=== PATIENT | male | born 1955 | race Caucasian/White ===

== ENCOUNTER 2017-07-08 19:21 | Inpatient (IN) | payer OTHER ==
[~2017-07-08] VITALS: Ht 152.4 cm; Wt 86.6 kg
[2017-07-08 22:15] VITALS: BP 114/76
[2017-07-08] MEDS ORDERED: ZOLPIDEM TARTRATE 5 MG TABLET PO PRN (23:00)
[2017-07-08] MEDS ORDERED: ONDANSETRON HCL/PF 4 MG/2 ML VIAL IVP PRN (23:00)
[2017-07-08] MEDS ORDERED: ACETAMINOPHEN 325 MG TABLET PO PRN (23:00)
[2017-07-08 23:05] VITALS: BP 114/76
--- NOTE | 2017-07-08 23:07 | NUR ---
TELE/RN NOTES: DIRECT ADMIT FROM [place] TAJIK SPEAKING 61 YRS. MALE VIA CAROLINE W/ TWO TECH AND DAUGHTER BRET KATHLEEN [phone] TO ROOM # 117-2. A/O X 4. ABLE TO MOVE ALL EXTREMITIES. ON O2 @ 2LPM VIA N/C SAT 98%. C/O ABDOMINAL PAIN MID. TO LLQ 8/10. ADMISSION QUESTIONS DONE W/ DAUGHTER BRET. ACTIVITIES LEADER GREG VISITED PT. HAS MID CHEST SCAR SINCE PT. HAD OPEN HEART SURGERY FEBRUARY 2017. 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 PT. RECEIVED LASIX , ZOFRAN, FENTANYL, ASA. PER DAUGHTER PT. HAD BM DAYS AGO . PT. VOIDED 350 ML OF YELLOW URINE IN URINAL. CALL LIGHT W/ REACH. BED LOCKED AND IN LOW POSITION. WILL CONTINUE TO MONITOR.
[2017-07-09] VITALS: BP 114/82
[2017-07-09] MEDS ORDERED: MAG HYDROX/AL HYDROX/SIMETH 30 ML UDC PO PRN
[2017-07-09] MEDS ORDERED: ALBUTEROL FS 2.5 MG/3 ML VIAL.NEB NEB PRN
[2017-07-09] MEDS ORDERED: DEXTROSE 50%-WATER 50 ML DISP.SYRIN IV PRN
[2017-07-09 00:08] LABS: BASOPHILS % (AUTO) 0.3 % (0.0-2.0); HEMATOCRIT 36 % (39-51); HEMOGLOBIN 12.2 g/dL (13.5-17.5); LYMPHOCYTES # (AUTO) 1.4 /CMM (0.8-4.8); LYMPHOCYTES % (AUTO) 17.4 % (20.0-44.0); MEAN CORPUSCULAR HEMOGLOBIN 32 PG (26.0-33.0); MEAN CORPUSCULAR HGB CONC 33 g/dl (31.0-36.0); MEAN CORPUSCULAR VOLUME 94 fL (80-96); MONOCYTES # (AUTO) 0.8 /CMM (0.1-1.30); MONOCYTES % (AUTO) 10.7 % (2.0-12.0); NEUTROPHILS # (AUTO) 5.6 /CMM (1.8-8.9); NEUTROPHILS % (AUTO) 71.6 % (43.0-81.0); PLATELET COUNT (AUTO) 133 /CMM (150-450); RDW COEFFICIENT OF VARIATION 15.6 (11.5-15.0); RED BLOOD CELL COUNT(AUTO) 3.87 MIL/uL (4.5-6.0); WHITE BLOOD COUNT (AUTO) 7.9 K/uL (4.3-11.0)
[2017-07-09 00:30] LABS: ALBUMIN 3.1 g/dL (3.4-5.0); BILIRUBIN,TOTAL 1.4 mg/dL (0.2-1.0); CALCIUM, SERUM 8.7 mg/dL (8.5-10.1); CREATININE 1.4 mg/dL (0.6-1.3); MAGNESIUM 1.5 mg/dL (1.8-2.4); PHOSPHORUS 4.7 mg/dL (2.5-4.9); POTASSIUM 4.3 mmol/L (3.5-5.1); TOTAL PROTEIN, SERUM 6.8 g/dL (6.4-8.2)
[2017-07-09 00:33] LABS: TROPONIN I 0.205 ng/mL (0.00-0.056)
[2017-07-09] MEDS: FUROSEMIDE 20 MG/2 ML VIAL IV SCH ×2 (00:40→08:16)
[2017-07-09] MEDS: MORPHINE SULFATE INJ 2 MG/ML DISP.SYRIN IV PRN ×3 (01:35→16:37)
[2017-07-09] MEDS ORDERED: ASPIRIN 81 MG TAB.CHEW PO ONE (02:00)
--- NOTE | 2017-07-09 02:02 | NUR ---
TELE/RN NOTES: PAGED DR. CARDENAS AND MADE AWARE OF TROPONIN 0.205 AND BNP [id number] W/ NO NEW ORDERS.
[2017-07-09] MEDS: Magnesium 1GM/D5W 100ML PREMIX 100 ML IV SCH ×2 (02:18→03:17)
[2017-07-09 04:00] VITALS: BP_SYST 111; BP_SYST 88; BP_DIAS 54; BP_DIAS 78
[2017-07-09] MEDS ORDERED: SITA1TAB2 PO (05:00)
[2017-07-09 06:52] LABS: ALBUMIN 2.9 g/dL (3.4-5.0); BILIRUBIN,TOTAL 1.2 mg/dL (0.2-1.0); CALCIUM, SERUM 8.4 mg/dL (8.5-10.1); CREATININE 1.3 mg/dL (0.6-1.3); MAGNESIUM 2.1 mg/dL (1.8-2.4); PHOSPHORUS 5.1 mg/dL (2.5-4.9); TOTAL PROTEIN, SERUM 6.6 g/dL (6.4-8.2)
[2017-07-09 06:53] LABS: BASOPHILS % (AUTO) 0.1 % (0.0-2.0); EOSINOPHILS % (AUTO) 0.1 % (0.0-6.0); HEMATOCRIT 37 % (39-51); HEMOGLOBIN 12.4 g/dL (13.5-17.5); LYMPHOCYTES # (AUTO) 1.3 /CMM (0.8-4.8); LYMPHOCYTES % (AUTO) 17.9 % (20.0-44.0); MEAN CORPUSCULAR HEMOGLOBIN 32 PG (26.0-33.0); MEAN CORPUSCULAR HGB CONC 34 g/dl (31.0-36.0); MEAN CORPUSCULAR VOLUME 94 fL (80-96); MONOCYTES # (AUTO) 0.6 /CMM (0.1-1.30); MONOCYTES % (AUTO) 8.2 % (2.0-12.0); NEUTROPHILS # (AUTO) 5.2 /CMM (1.8-8.9); NEUTROPHILS % (AUTO) 73.7 % (43.0-81.0); PLATELET COUNT (AUTO) 121 /CMM (150-450); RDW COEFFICIENT OF VARIATION 15.3 (11.5-15.0); RED BLOOD CELL COUNT(AUTO) 3.92 MIL/uL (4.5-6.0); WHITE BLOOD COUNT (AUTO) 7.1 K/uL (4.3-11.0)
[2017-07-09 06:56] LABS: TROPONIN I 0.178 ng/mL (0.00-0.056)
--- NOTE | 2017-07-09 07:13 | NUR ---
RN/TELE NOTES: NO ACUTE DISTRESS NOTED. REPORT GIVEN TO AM NURSE FOR CHRISTIANO.
--- NOTE | 2017-07-09 07:25 | NUR ---
RN OPENING NOTES RECEIVED PT. PT STABLE AND RESTING IN BED. PT BREATHING IS LABORED WITH RR OF 20, HOWEVER O2 SAT WNL. NC IN PLACE WITH O2 AT 2L/MIN.IV ACCESS LOCATED ON RIGHT WRIST 20G AND RIGHT HAND 20 G BOTH HL. PT SCHEDULED FOR US ABDOMEN TODAY TO R/O ASCITES, SAFETY MEASURES IN PLACE, CALL LIGHT WITHIN REACH. WILL CONTINUE TO MONITOR.
[2017-07-09] MEDS: PANTOPRAZOLE 40 MG TABLET.DR PO SCH (07:30)
[2017-07-09 08:00] VITALS: BP_SYST 105; BP_SYST 111; BP_DIAS 60; BP_DIAS 73
[2017-07-09] MEDS: BLOOD SUGAR DIAGNOSTIC 1 EACH STRIP IN SCH ×4 (08:15→21:05)
[2017-07-09 08:43] LABS: THYROID STIMULATING HORMONE 1.671 uIU/mL (0.358-3.74)
[2017-07-09] MEDS ORDERED: glipiZIDE 10 MG TABLET PO SCH (09:00)
[2017-07-09] MEDS: glipiZIDE 10 MG TABLET PO SCH ×2 (09:00→16:38)
[2017-07-09] MEDS: CLOPIDOGREL BISULFATE 75 MG TABLET PO SCH (09:00)
[2017-07-09] MEDS ORDERED: CARVEDILOL 6.25 MG TABLET PO SCH (09:00)
[2017-07-09] MEDS: ASPIRIN EC 81 MG TABLET.DR PO SCH (09:00)
[2017-07-09] MEDS ORDERED: ASPIRIN 81 MG TAB.CHEW PO SCH (09:00)
[2017-07-09] MEDS ORDERED: LISINOPRIL (5MG) 5 MG TABLET PO SCH (09:00)
[2017-07-09] MEDS: FUROSEMIDE 40 MG/4 ML VIAL IV SCH ×2 (11:33→15:50)
[2017-07-09 12:00] VITALS: BP_SYST 103; BP_SYST 105; BP_DIAS 63; BP_DIAS 73
--- NOTE | 2017-07-09 13:00 | NUR ---
RN NOTES SLIDING SCALE FOR AM AND NOON HELD DUE TO PT NPO DIAGNOSIS.
--- NOTE | 2017-07-09 15:34 | NUR ---
patient speaks English only, he is alert, lives at home with family. He had recent open heart surgery last Feb 2017. He is ambulatory and independent with adl's. No DME or homehealth reported Has good family support. Current plan is to return home , family will provide ride when discharge. Addendum: 07/09/17 at 1535 by SHIRLEY RON RN Amended: Links added.
[2017-07-09 16:00] VITALS: BP 108/70
--- NOTE | 2017-07-09 19:22 | NUR ---
RN CLOSING NOTES PT IN BED RESTING. NO S/S OF RESP DISTRESS. PT HAD C/O ABD PAIN, ADDRESSED PHARMACOLOGICALLY. ALL PT NEEDS ANTICIPATED AND MET. SAFETY MEASURES IN PLACE, CALL LIGHT IN REACH. WILL ENDORSE TO SPORTS LAWYER FOR CHRISTIANO.
--- NOTE | 2017-07-09 19:30 | NUR ---
TELE /RN NOTES: RECEIVED PT. IN BED SLEEPING BUT EASILY AWAKE BY TACTILE TOUCH. A/O X 4. MOSTLY COOK ISLANDER SPEAKING BUT DOES UNDERSTAND AND ABLE TO SPEAK SIMPLE SYRI[place]. ON TELE MONITOR V PACING. DENIES ANY C/O CHEST PAIN OR ANY ABDOMINAL PAIN AT PRESENT. PT. IS NPO STATUS. PT. IS CONTINENT OF B/B. USES URINAL. CALL LIGHT W/REACH. WILL CONTINUE TO MONITOR.
[2017-07-09 20:00] VITALS: BP_SYST 116; BP_SYST 89; BP_DIAS 49; BP_DIAS 68
[2017-07-09] MEDS: INSULIN REGULAR, HUMAN 100 UNIT/ML 3 ML VIAL SQ PRN (21:08)
[2017-07-09 21:25] LABS: APPEARANCE,URINE CLEAR (CLEAR); BILIRUBIN,URINE NEGATIVE (NEGATIVE); BLOOD, URINE 3+ Ery/uL (NEGATIVE); COLOR,URINE YELLOW (YELLOW); KETONES,URINE NEGATIVE (NEGATIVE); LEUKOCYTE ESTERASE ,URINE NEGATIVE (NEGATIVE); NITRITE, URINE NEGATIVE (NEGATIVE); PROTEIN,URINE TRACE mg/dl (NEGATIVE); UGLUCOSE NEGATIVE (NEGATIVE); UROBILINOGEN,URINE 0.2 EU/dL (0.2)
[2017-07-09 21:28] LABS: WBC,URINE 0-2 /HPF (0-3)
[2017-07-09 21:29] LABS: BACTERIA,URINE Rare /HPF (None Seen); SQUAMOUS EPITHELIAL CELL,UR Few /HPF (None Seen)
[2017-07-09] MEDS ORDERED: ATORVASTATIN 40 MG TABLET PO SCH (22:00)
[2017-07-10] VITALS: BP_SYST 104; BP_SYST 4; BP_DIAS 69
[2017-07-10] MEDS: MORPHINE SULFATE INJ 2 MG/ML DISP.SYRIN IV PRN (00:25)
[2017-07-10 04:00] VITALS: BP 108/73
[2017-07-10 04:47] VITALS: BP 108/73
[2017-07-10 06:45] LABS: BASOPHILS % (AUTO) 0.2 % (0.0-2.0); HEMATOCRIT 38 % (39-51); HEMOGLOBIN 12.7 g/dL (13.5-17.5); LYMPHOCYTES % (AUTO) 14.5 % (20.0-44.0); MEAN CORPUSCULAR HEMOGLOBIN 32 PG (26.0-33.0); MEAN CORPUSCULAR HGB CONC 34 g/dl (31.0-36.0); MEAN CORPUSCULAR VOLUME 95 fL (80-96); MONOCYTES # (AUTO) 0.4 /CMM (0.1-1.30); NEUTROPHILS # (AUTO) 5.7 /CMM (1.8-8.9); NEUTROPHILS % (AUTO) 80.3 % (43.0-81.0); PLATELET COUNT (AUTO) 126 /CMM (150-450); RDW COEFFICIENT OF VARIATION 15.4 (11.5-15.0); RED BLOOD CELL COUNT(AUTO) 3.97 MIL/uL (4.5-6.0); WHITE BLOOD COUNT (AUTO) 7.1 K/uL (4.3-11.0)
[2017-07-10 07:02] LABS: BILIRUBIN,TOTAL 1.3 mg/dL (0.2-1.0); CREATININE 1.4 mg/dL (0.6-1.3); MAGNESIUM 1.8 mg/dL (1.8-2.4); PHOSPHORUS 4.5 mg/dL (2.5-4.9); POTASSIUM 3.8 mmol/L (3.5-5.1); TOTAL PROTEIN, SERUM 6.8 g/dL (6.4-8.2)
[2017-07-10 07:08] LABS: TROPONIN I 0.204 ng/mL (0.00-0.056)
[2017-07-10] MEDS: PANTOPRAZOLE 40 MG TABLET.DR PO SCH (07:30)
--- NOTE | 2017-07-10 07:30 | NUR ---
EMERGENCY MEDCL EMT OPENING NOTE: PATIENT IN BED W/ EYES CLOSE BUT OPEN EYES WHEN CALLING HIS NAME. RESPIRATION EVEN AND UNLABORED. ON O2 2L/MIN VIA NC, SATURATING 98%. HOB ELEVATED. (L) CHEST PACEMAKER NOTED V-PACING ON TELE MONITOR HR= 86. (R) WRIST AND (R) HAND IV LINE NOTED PATENT AND INTACT. AFEBRILE. CALL LIGHT IN PLACED WITHIN REACH. BED ALARM AND LOCKED AT ALL TIMES. NEEDS ANTICIPATED.
--- NOTE | 2017-07-10 07:36 | NUR ---
TELE NOTES: NO ACUTE CHANGES NOTED DURING THIS SHIFT. REPORT GIVEN TO NEXT SHIFT NURSE FOR CHRISTIANO.
--- NOTE | 2017-07-10 07:45 | NUR ---
CLAIM PROFESSIONAL NOTE: RECEIVED PT IN BED, AWAKE, ALERT AND VERBALLY RESPONSIVE. RESPIRATION EVEN AND UNLABORED. (R) WRIST AND (R) HAND SALINE LOCK NOTED PATENT AND INTACT. BED ALARM AND LOCKED ON AT ALL TIMES. USED URINAL. CALL LIGHT WITHIN REACH. NEEDS ANTICIPATED.
[2017-07-10] MEDS: BLOOD SUGAR DIAGNOSTIC 1 EACH STRIP IN SCH ×4 (07:53→21:08)
[2017-07-10 08:00] VITALS: BP 104/69
[2017-07-10] MEDS ORDERED: HYDROMORPHONE INJ 0.5 MG/0.5 ML SYRINGE IV PRN (08:00)
[2017-07-10] MEDS: ASPIRIN EC 81 MG TABLET.DR PO SCH (09:00)
[2017-07-10] MEDS: glipiZIDE 10 MG TABLET PO SCH ×2 (09:00→17:17)
[2017-07-10] MEDS: CLOPIDOGREL BISULFATE 75 MG TABLET PO SCH (09:00)
[2017-07-10] MEDS: FUROSEMIDE 20 MG/2 ML VIAL IV SCH (09:13)
[2017-07-10] MEDS ORDERED: POTASSIUM CHLORIDE 20 MEQ TAB.PRT.SR PO SCH (11:00)
[2017-07-10] MEDS: FUROSEMIDE 40 MG/4 ML VIAL IV SCH ×3 (11:21→17:44)
[2017-07-10] MEDS ORDERED: SOD FERRIC GLUC 125 MG in IV NS 0.9% 100 ML IV SCH (14:00)
[2017-07-10 16:00] VITALS: BP 110/80
--- NOTE | 2017-07-10 16:10 | NUR ---
RN M/S NOTE: PT'S NOTED W/ A TEMP OF 100.4F. COOLING MEASURES PROVIDED AND REMOVED EXCESS LINEN IN THE BED. CALLED AND PAGED MEMO VASQUEZ AND AWAITING FOR CALL BACK.
[2017-07-10] MEDS ORDERED: ACETAMINOPHEN 325 MG TABLET PO ONE (17:00)
--- NOTE | 2017-07-10 17:00 | NUR ---
RN M/S NOTE: RECHECKED PT'S TEMP, AND IT WAS 100.1F. PAGED MEMO VASQUEZ AGAIN TO GET ORDERS. PATIENT VERBALIZED THAT HE FELT SO MUCH BETTER COMPARE EARLIER. NO N/V NOTED. DAUGHTER PRESENT AT THE BEDSIDE.
[2017-07-10] MEDS: HYDROMORPHONE INJ 0.5 MG/0.5 ML SYRINGE IV PRN (17:07)
--- NOTE | 2017-07-10 17:40 | NUR ---
RN M/S NOTE: PT'S TEMPERATURE WAS RECHECKED AGAIN AFTER COOLING MEASURES AND REMOVAL OF EXCESS LINEN ON THE PATIENT. TEMPERATURE NOW IS 98.6F.
--- NOTE | 2017-07-10 19:00 | NUR ---
MS RN NOTE: PATIENT RESTING IN BED, A/O X4, IN STABLE, NO ACUTE DISTRESS NOTED. BREATHING EVEN AND UNLABORED, NO SOB NOTED. BED LOCKED AND IN LOWEST POSITION, CALL LIGHT IN REACH. WILL CONTINUE TO MONITOR.
--- NOTE | 2017-07-10 19:46 | NUR ---
RN M/S NOTE: PATIENT IN STABLE CONDITION. REMAINED ALERT AND VERBALLY RESPONSIVE. REPORT GIVEN TO JOSE J KRAMER FOR CONTINUITY OF CARE.
[2017-07-10 20:00] VITALS: BP 104/75
[2017-07-10] MEDS: INSULIN REGULAR, HUMAN 100 UNIT/ML 3 ML VIAL SQ PRN (21:08)
--- NOTE | 2017-07-11 01:24 | NUR ---
MS RN NOTES PAGED DR. THERESA ROBLES, SPOKE TO HIM PT C/O OF HAVING HEADACHE MILD PAIN 2-10 RELAYED TO . COAL SAMPLER HOSPITALIST PER DR. CARDENAS ORDERED TO GIVE TYLENOL 650 MG PO Q6 PRN NOTED AND CARRIED OUT. READ BACK AND VERIFIED
[2017-07-11] MEDS ORDERED: ACETAMINOPHEN 325 MG TABLET PO PRN (01:30)
[2017-07-11 04:00] VITALS: BP 97/70
--- NOTE | 2017-07-11 06:24 | NUR ---
MS RN CLOSING NOTES ON 2LPM VIA NC 02 SAT AT 95% PT ASLEEP AND EASILY AWAKEN, HOB ELEVATED AT ALL TIMES. NO S/S OF DISTRESS, STABLE CONDITION. RESPIRATION EVEN AND UNLABORED. GOOD SKIN CARE PROVIDED. ALL NURSING CARE RENDERED. NEEDS ATTENDED AND ANTICIPATED, KEPT CLEAN AND DRY AND COMFORTABLE, FREQUENT VISUAL CHECK DONE FOR SAFETY EVERY 2 HOURS. ON LOW BED AT ALL TIMES TO ENSURE SAFETY. SAFE HAZARD FREE ENVIRONMENT PROVIDED. CALL LIGHT WITHIN EASY TO REACH. WILL ENDORSE NEXT SHIFT CONTINUITY OF CARE. NO S/S OF HYPO/HYPERGLYCEMIA
[2017-07-11 07:20] LABS: BASOPHILS % (AUTO) 0.2 % (0.0-2.0); HEMATOCRIT 41 % (39-51); HEMOGLOBIN 13.5 g/dL (13.5-17.5); LYMPHOCYTES # (AUTO) 1.2 /CMM (0.8-4.8); LYMPHOCYTES % (AUTO) 19.7 % (20.0-44.0); MEAN CORPUSCULAR HEMOGLOBIN 32 PG (26.0-33.0); MEAN CORPUSCULAR HGB CONC 33 g/dl (31.0-36.0); MEAN CORPUSCULAR VOLUME 95 fL (80-96); MONOCYTES # (AUTO) 0.4 /CMM (0.1-1.30); NEUTROPHILS # (AUTO) 4.4 /CMM (1.8-8.9); NEUTROPHILS % (AUTO) 74.1 % (43.0-81.0); PLATELET COUNT (AUTO) 132 /CMM (150-450); RDW COEFFICIENT OF VARIATION 15.2 (11.5-15.0); RED BLOOD CELL COUNT(AUTO) 4.25 MIL/uL (4.5-6.0); WHITE BLOOD COUNT (AUTO) 5.9 K/uL (4.3-11.0)
--- NOTE | 2017-07-11 07:30 | NUR ---
RN M/S NOTE: RECEIVED PT IN BED, AWAKE, ALERT AND VERBALLY RESPONSIVE. RESPIRATION EVEN AND UNLABORED. SATURATING WELL ON RA 97%. DENIED PAIN. (R) WRIST AND (R) HAND IV LINE NOTED PATENT AND INTACT. CALL LIGHT WITHIN REACH. NEEDS ANTICIPATED.
[2017-07-11 07:54] LABS: ALBUMIN 3.1 g/dL (3.4-5.0); BILIRUBIN,TOTAL 1.4 mg/dL (0.2-1.0); CALCIUM, SERUM 8.7 mg/dL (8.5-10.1); CREATININE 1.5 mg/dL (0.6-1.3); MAGNESIUM 1.9 mg/dL (1.8-2.4); PHOSPHORUS 4.5 mg/dL (2.5-4.9); POTASSIUM 4.1 mmol/L (3.5-5.1); TOTAL PROTEIN, SERUM 7.3 g/dL (6.4-8.2)
[2017-07-11 08:00] VITALS: BP 102/71
[2017-07-11] MEDS: BLOOD SUGAR DIAGNOSTIC 1 EACH STRIP IN SCH ×4 (08:03→21:48)
[2017-07-11] MEDS: CLOPIDOGREL BISULFATE 75 MG TABLET PO SCH (08:15)
[2017-07-11] MEDS: PANTOPRAZOLE 40 MG TABLET.DR PO SCH (08:15)
[2017-07-11] MEDS: ASPIRIN EC 81 MG TABLET.DR PO SCH (08:15)
[2017-07-11] MEDS: glipiZIDE 10 MG TABLET PO SCH ×2 (08:15→16:49)
--- NOTE | 2017-07-11 10:35 | NUR ---
RN M/S NOTE: SPOKE W/ DR. HUTCHINS AND ASKED FOR A PARAMETER FOR THE PATIENT'S LASIX ORDER. MD SAID TO HOLD IF SBP <100. PT MADE AWARE.
[2017-07-11] MEDS: FUROSEMIDE 80 MG TABLET PO SCH (11:03)
[2017-07-11] MEDS: HYDROMORPHONE INJ 0.5 MG/0.5 ML SYRINGE IV PRN ×2 (12:09→19:00)
[2017-07-11] MEDS: SOD FERRIC GLUC 125 MG in IV NS 0.9% 100 ML IV SCH (14:52)
[2017-07-11 16:00] VITALS: BP 116/71
--- NOTE | 2017-07-11 19:29 | NUR ---
RN M/S NOTE: PT IN BED, ASLEEP BUT AROUSABLE WHEN CALLING HIS NAME. NOT ON ANY FORM OF DISTRESS. RESPIRATION IS EVEN AND UNLABORED ON RA SATURATING 95%. CALL LIGHT WITHIN REACH. BED ALARM AND LOCKED AT ALL TIMES. REPORT GIVEN TO PM SHIFT NURSE FOR CONTINUITY OF CARE.
--- NOTE | 2017-07-11 19:30 | NUR ---
MS RN OPENING NOTES RECEIVED PT IN BED AWAKE, ALERT, VERBALLY RESPONSIVE, RESPIRATIONS EVEN, UNLABORED, NO SOB NOTED. DENIES ANY PAIN OR DISCOMFORT AT THIS TIME.IV SITE INTACT, PATENT, NO S/SX OF INFILTRATION NOTED. CALL LIGHT WITHIN REACH. KEPT CLEAN AND COMFORTABLE, ATTENDED ALL NEEDS. WILL CONTINUE TO MONITOR ACCORDINGLY.
[2017-07-11 21:00] VITALS: BP 98/62
[2017-07-11 22:10] VITALS: BP 102/64
[2017-07-12] VITALS: BP 110/64
[2017-07-12] MEDS: BLOOD SUGAR DIAGNOSTIC 1 EACH STRIP IN SCH ×2 (05:55→12:44)
--- NOTE | 2017-07-12 06:14 | NUR ---
MS RN CLOSING NOTES PT IN BED ASLEEP, RESTING COMFORTABLY, NO APPARNT DISTRESS NOTED. ON ROOM AIR O2 SAT 96%.NO S/SX OF PAIN OR DISCOMFORT NOTED AT THIS TIME. BLOOD GLUCOSE 101. CALL LIGHT WITHIN REACH.ATTENDED ALL NEEDS. WILL CONTINUE TO MONITOR ACCORDINGLY.
--- NOTE | 2017-07-12 07:30 | NUR ---
MS RN OPENING NOTES RECEIVED PATIENT IN STABLE CONDITION. PATIENT IS ALERT AND ORIENTED RESTING IN BED. IN NO APPARENT DISTRESS. BEDSIDE RAILS ARE UPX2. BED IS LOCKED AND LOWERED. CALL LIGHT IS WITHIN REACH. WILL CONTINUE TO MONITOR.
[2017-07-12 08:00] VITALS: BP 103/74
[2017-07-12] MEDS: glipiZIDE 10 MG TABLET PO SCH (08:32)
[2017-07-12] MEDS: CLOPIDOGREL BISULFATE 75 MG TABLET PO SCH (08:34)
[2017-07-12] MEDS: FUROSEMIDE 80 MG TABLET PO SCH (08:34)
[2017-07-12] MEDS: ASPIRIN EC 81 MG TABLET.DR PO SCH (08:34)
[2017-07-12] MEDS: PANTOPRAZOLE 40 MG TABLET.DR PO SCH (08:34)
[2017-07-12 10:59] LABS: BILIRUBIN,DIRECT 0.4 mg/dL (0.0-0.2); BILIRUBIN,TOTAL 1.2 mg/dL (0.2-1.0); CALCIUM, SERUM 8.1 mg/dL (8.5-10.1); CREATININE 1.1 mg/dL (0.6-1.3); POTASSIUM 3.2 mmol/L (3.5-5.1); TOTAL PROTEIN, SERUM 6.8 g/dL (6.4-8.2)
[2017-07-12 11:10] LABS: ALBUMIN 3.1 g/dL (3.4-5.0)
[2017-07-12] MEDS ORDERED: ASPI-1152 PO (13:42)
[2017-07-12] MEDS ORDERED: FURO80TA3 PO (13:42)
[2017-07-12] MEDS ORDERED: CLOP75TA15 PO (13:42)
[2017-07-12] MEDS ORDERED: POTA20TA83 PO (13:52)
[2017-07-12] MEDS ORDERED: POTASSIUM CHLORIDE 20 MEQ TAB.PRT.SR PO ONE (14:00)
[2017-07-12] MEDS: SOD FERRIC GLUC 125 MG in IV NS 0.9% 100 ML IV SCH (15:31)
[2017-07-12 16:00] VITALS: BP_SYST 103; BP_SYST 94; BP_DIAS 56; BP_DIAS 74
--- NOTE | 2017-07-12 17:00 | NUR ---
DISCHARGED PATIENT IN STABLE CONDITION. VITALS SIGNS WNL. ALL NEEDS WERE MET. ID BAND WAS REMOVED. IV WAS REMOVED. PATIENT ESCORTED OUTSIDE OF THE HOSPITAL VIA WHEELCHAIR BY ADRIEN ROB.
== END 2017-07-12 17:15 | disposition home or self-care (01) | DRG 190 ==
LOC: TELE1 21:57 → MEDSG1 07-10 10:25
PROVIDERS: ADMIT Nurse Practitioner Acute Care; ATTEND Nurse Practitioner Acute Care
DX: I21.A1 Myocardial infarction type 2 (principal); J96.01 Acute respiratory failure with hypoxia; I50.23 Acute on chronic systolic (congestive) heart failure; E44.0 Moderate protein-calorie malnutrition; J90 Pleural effusion, not elsewhere classified; R18.8 Other ascites; E87.1 Hypo-osmolality and hyponatremia; E11.65 Type 2 diabetes mellitus with hyperglycemia; K59.00 Constipation, unspecified; Z95.1 Presence of aortocoronary bypass graft; I11.0 Hypertensive heart disease with heart failure; D69.6 Thrombocytopenia, unspecified; I25.10 Atherosclerotic heart disease of native coronary artery without angina pectoris; Z95.0 Presence of cardiac pacemaker; Z87.891 Personal history of nicotine dependence; Z87.01 Personal history of pneumonia (recurrent); D53.9 Nutritional anemia, unspecified; K44.9 Diaphragmatic hernia without obstruction or gangrene; N62 Hypertrophy of breast; E87.5 Hyperkalemia; E80.6 Other disorders of bilirubin metabolism; I25.2 Old myocardial infarction; F32.9 Major depressive disorder, single episode, unspecified; E66.9 Obesity, unspecified; Z87.81 Personal history of (healed) traumatic fracture; K21.9 Gastro-esophageal reflux disease without esophagitis; K57.90 Diverticulosis of intestine, part unspecified, without perforation or abscess without bleeding; N20.0 Calculus of kidney
CPT/HCPCS: 36415; 71045-TC; 74018; 76700-TC; 80048-TC; 80053-TC; 80061-TC; 80076-TC; 81000-TC; 82306; 82728-TC; 82962-TC; 83540-TC; 83690-TC; 83735-TC; 83880; 84100-TC; 84439-TC; 84443-TC; 84484-TC; 85025-TC; 87081-TC; 87086-TC; 93307-TC; 94799-TC; J1815; J1940; J2270; J2405; J2916; J3475; J7030; Z7610

== ENCOUNTER 2019-05-29 15:07 | Inpatient (IN) | payer MEDICARE, OTHER ==
[~2019-05-29] VITALS: Ht 170.2 cm; Wt 89.8 kg
[~2019-05-29 15:07] MED LIST: ASPI-1152 PO; CLOP75TA15 PO; FURO80TA3 PO; POTA20TA83 PO; SITA1TAB2 PO
--- NOTE | 2019-05-29 15:27 | NUR ---
blood in urine/dysuria/chillS, PT AWAKE, ALERT, -SOB, NADN OTED, VSS ,PENDING MD REYES
[2019-05-29] MEDS ORDERED: IV NS 0.9% 1,000 ML BAG IV ONE (15:30)
[2019-05-29 15:37] LABS: BASOPHILS # (AUTO) 0.1 /CMM (0.0-0.2); BASOPHILS % (AUTO) 0.7 % (0.0-2.0); EOSINOPHILS % (AUTO) 0.1 % (0.0-6.0); HEMATOCRIT 37 % (39-51); HEMOGLOBIN 12.2 g/dL (13.5-17.5); LYMPHOCYTES # (AUTO) 1.3 /CMM (0.8-4.8); LYMPHOCYTES % (AUTO) 7.1 % (20.0-44.0); MEAN CORPUSCULAR HGB CONC 33 g/dl (31.0-36.0); MEAN CORPUSCULAR VOLUME 99 fL (80-96); MONOCYTES # (AUTO) 1.2 /CMM (0.1-1.30); MONOCYTES % (AUTO) 6.4 % (2.0-12.0); NEUTROPHILS # (AUTO) 15.4 /CMM (1.8-8.9); NEUTROPHILS % (AUTO) 85.7 % (43.0-81.0); PLATELET COUNT (AUTO) 167 /CMM (150-450); RED BLOOD CELL COUNT(AUTO) 3.72 MIL/uL (4.5-6.0)
[2019-05-29 15:49] LABS: ALBUMIN 3.8 g/dL (3.4-5.0); BILIRUBIN,DIRECT 0.6 mg/dL (0.0-0.2); BILIRUBIN,TOTAL 2.3 mg/dL (0.2-1.0); CALCIUM, SERUM 9.2 mg/dL (8.5-10.1); CREATININE 1.6 mg/dL (0.6-1.3); POTASSIUM 4.9 mmol/L (3.5-5.1); TOTAL PROTEIN, SERUM 7.8 g/dL (6.4-8.2)
[2019-05-29 15:52] LABS: APPEARANCE,URINE TURBID (CLEAR); BILIRUBIN,URINE NEGATIVE (NEGATIVE); BLOOD, URINE LARGE Ery/uL (NEGATIVE); COLOR,URINE RED (YELLOW); KETONES,URINE TRACE (NEGATIVE); LEUKOCYTE ESTERASE ,URINE NEGATIVE (NEGATIVE); NITRITE, URINE NEGATIVE (NEGATIVE); PH,URINE 5.5 (5.0-8.0); PROTEIN,URINE >=300 mg/dl (NEGATIVE); UGLUCOSE 100 MG/DL mg/dL (NEGATIVE); UROBILINOGEN,URINE 0.2 EU/dL (0.2)
[2019-05-29 16:00] LABS: BACTERIA,URINE None seen /HPF (None Seen); RBC,URINE TOO NUMEROUS TO COUN /HPF (0-2); SQUAMOUS EPITHELIAL CELL,UR Moderate /HPF (None Seen); WBC,URINE 0-2 /HPF (0-3)
[2019-05-29] MEDS ORDERED: IV NS 0.9% 250 ML IV ONE (16:48)
[2019-05-29] MEDS ORDERED: CT SWABBABLE VALVE TRANS SET 1 EA INFUS.SET MC ONE (16:48)
[2019-05-29] MEDS ORDERED: IOHEXOL-300 100 ML VIAL IV ONE (16:48)
[2019-05-29] MEDS ORDERED: VANCOMYCIN 1 GM in IV D5W 250 ML IV ONE (17:00)
[2019-05-29] MEDS ORDERED: PIPERACILLIN /TAZOBACTAM 3.375 G in IV D5W 50 ML IV ONE (17:00)
[2019-05-29] MEDS ORDERED: ASPIRIN 325 MG TABLET PO ONE (18:00)
[2019-05-29] MEDS ORDERED: ICOS1CAP PO (18:01)
[2019-05-29] MEDS ORDERED: TAMS-12 PO (18:01)
[2019-05-29] MEDS ORDERED: GLIP10TA21 PO (18:01)
[2019-05-29] MEDS ORDERED: SITA1TAB2 PO (18:01)
[2019-05-29] MEDS ORDERED: NITR0.4T48 SL (18:01)
[2019-05-29] MEDS ORDERED: FURO-144 PO (18:01)
[2019-05-29] MEDS ORDERED: APIX5TAB PO (18:01)
[2019-05-29] MEDS ORDERED: ASPI-605 PO (18:01)
[2019-05-29] MEDS ORDERED: AMIO200T4 PO (18:01)
[2019-05-29] MEDS ORDERED: DEXL60CA3 PO (18:01)
[2019-05-29] MEDS ORDERED: SACU1TAB7 PO (18:01)
[2019-05-29] MEDS ORDERED: CARV6.25 PO (18:01)
[2019-05-29] MEDS ORDERED: ASPIRIN 325 MG TABLET ONE (18:02)
--- NOTE | 2019-05-29 18:06 | NUR ---
315-1 tele dx sepsis, nstemi, diverticulitis, pulmonary edema
--- NOTE | 2019-05-29 18:51 | NUR ---
report given to james lozano for diego; pt will be transported to 3rd floor
[2019-05-29] MEDS ORDERED: IV NS 0.9% 1,000 ML IV PRN (19:14)
[2019-05-29] MEDS ORDERED: MAGNESIUM HYDROXIDE 30 ML UDC PO PRN (19:30)
[2019-05-29] MEDS ORDERED: MAG HYDROX/AL HYDROX/SIMETH 30 ML UDC PO PRN (19:30)
[2019-05-29] MEDS ORDERED: NITROGLYCERIN 0.4 MG/TAB BOTTLE SL SCH (19:30)
[2019-05-29] MEDS ORDERED: Z GUARD REMEDY 2 OZ OINT TP PRN (19:30)
[2019-05-29] MEDS ORDERED: ZOLPIDEM TARTRATE 5 MG TABLET PO PRN (19:30)
[2019-05-29] MEDS ORDERED: ACETAMINOPHEN 325 MG TABLET PO PRN (19:30)
[2019-05-29] MEDS ORDERED: DEXTROSE 50%-WATER 50 ML DISP.SYRIN IV PRN (19:30)
--- NOTE | 2019-05-29 19:30 | NUR ---
EMBROIDERY CUTTER NOTES RECEIVED PATIENT AT 1925. PATIENT IN BED, ALERT AND ORIENTED X 4. BREATHING EVEN AND UNLABORED ON ROOM AIR. IV ON LAC #20G, CLEAN DRY AND INTACT. SHOWS NO SIGNS OF INFILTRATION, NO REDNESS. SKIN ASSESSMENT COMPLETED AND BELONGING CHECKLIST COMPLETED. TELE ON V-PACED 60'S. ORIENTED TO ROOM AND STAFF. SAFETY PRECAUTIONS ON PLACE. BED IN LOWEST POSITION, LOCKED, AND CALL LIGHT KEPT WITHIN REACH. WILL CONTINUE TO MONITOR.
--- NOTE | 2019-05-29 19:37 | NUR ---
pt transported to 3rd floor
[2019-05-29] MEDS ORDERED: FEE PK DOSING 1 MIN EA MC ONE (19:38)
[2019-05-29 20:00] VITALS: BP 131/81
[2019-05-29 20:35] VITALS: BP 131/81
[2019-05-29] MEDS: HYDROCODONE/APAP 5/325MG 1 EACH TABLET PO PRN (20:47)
[2019-05-29] MEDS: BLOOD SUGAR DIAGNOSTIC 1 EACH STRIP IN SCH (21:25)
[2019-05-29] MEDS: INSULIN REGULAR, HUMAN 100 UNIT/ML 3 ML VIAL SQ PRN (21:26)
[2019-05-29] MEDS: ONDANSETRON HCL/PF 4 MG/2 ML VIAL IVP PRN (23:32)
[2019-05-30] VITALS: BP 115/65
[2019-05-30] MEDS: PIPERACILLIN /TAZOBACTAM 3.375 G in IV D5W 50 ML IV SCH ×5 (00:02→23:08)
[2019-05-30] MEDS ORDERED: TAMS-12 PO (01:36)
--- NOTE | 2019-05-30 02:37 | NUR ---
NURSING TECH NOTES PATIENT COMPLAINING OF PAIN IN LOWER ABDOMINAL AND LOWER BACK. GIVEN PRN NORCO 2046. WILL CONTINUE TO MONITOR.
[2019-05-30 03:10] LABS: BASOPHILS # (AUTO) 0.1 /CMM (0.0-0.2); BASOPHILS % (AUTO) 0.4 % (0.0-2.0); HEMATOCRIT 35 % (39-51); HEMOGLOBIN 11.6 g/dL (13.5-17.5); LYMPHOCYTES # (AUTO) 1.2 /CMM (0.8-4.8); LYMPHOCYTES % (AUTO) 4.6 % (20.0-44.0); MEAN CORPUSCULAR HGB CONC 33 g/dl (31.0-36.0); MEAN CORPUSCULAR VOLUME 99 fL (80-96); MONOCYTES # (AUTO) 1.6 /CMM (0.1-1.30); MONOCYTES % (AUTO) 6.4 % (2.0-12.0); NEUTROPHILS # (AUTO) 22.4 /CMM (1.8-8.9); NEUTROPHILS % (AUTO) 88.6 % (43.0-81.0); PLATELET COUNT (AUTO) 146 /CMM (150-450); RED BLOOD CELL COUNT(AUTO) 3.58 MIL/uL (4.5-6.0); WHITE BLOOD COUNT (AUTO) 25.3 K/uL (4.3-11.0)
[2019-05-30 03:35] LABS: ALBUMIN 3.2 g/dL (3.4-5.0); BILIRUBIN,TOTAL 3.3 mg/dL (0.2-1.0); CALCIUM, SERUM 8.4 mg/dL (8.5-10.1); CREATININE 1.5 mg/dL (0.6-1.3); MAGNESIUM 1.7 mg/dL (1.8-2.4); PHOSPHORUS 1.6 mg/dL (2.5-4.9); POTASSIUM 4.8 mmol/L (3.5-5.1); TOTAL PROTEIN, SERUM 6.7 g/dL (6.4-8.2)
[2019-05-30 03:36] LABS: THYROID STIMULATING HORMONE 2.872 uIU/mL (0.358-3.74)
[2019-05-30 04:00] VITALS: BP 139/93
[2019-05-30] MEDS: HYDROCODONE/APAP 5/325MG 1 EACH TABLET PO PRN ×2 (04:00→05:02)
--- NOTE | 2019-05-30 04:18 | NUR ---
EYELET ROW MARKER NOTES PATIENT COMPLAINING OF PAIN 6/10 ON LOWER ABDOMINAL. GIVEN NORCO PRN AT 0400. WILL CONTINUE TO MONITOR.
[2019-05-30] MEDS: VANCOMYCIN 0.75 GM in IV D5W 250 ML IV SCH ×2 (05:59→17:05)
[2019-05-30] MEDS: BLOOD SUGAR DIAGNOSTIC 1 EACH STRIP IN SCH ×4 (06:36→21:22)
[2019-05-30] MEDS: INSULIN REGULAR, HUMAN 100 UNIT/ML 3 ML VIAL SQ PRN ×4 (06:39→21:23)
--- NOTE | 2019-05-30 06:44 | NUR ---
DRAINAGE ENGINEER NOTES PATIENT IN BED, ASLEEP, ALERT AND ORIENTED X 4. BREATHING EVEN AND UNLABORED ON ROOM AIR. IV ON LAC #20G, CLEAN DRY AND INTACT. RUNNING AT 75ML/HR. SHOWS NO SIGNS OF INFILTRATION, NO REDNESS. . TELE ON V-PACED 60'S. 3 EPISODES OF EMESIS. ALL DUE MEDICATIONS GIVEN. SAFETY PRECAUTIONS ON PLACE. BED IN LOWEST POSITION, LOCKED, AND CALL LIGHT KEPT WITHIN REACH. WILL ENDORSE TO ONCOMING NURSE.
--- NOTE | 2019-05-30 07:30 | NUR ---
Tele/RN - Assessment Patient is awake, A/O x 4, no apparent distress, afebrile, stable on room air, no c/o chest or abdominal pain at this time, tele shows v pacing underlying rhythm is SR. IVF NS at NS at 75 ml/hr infusing well on the LAC with no signs of infiltration. Labs reviewed, WBC trending up 25.3, on Zosyn and IV Vancomycin, noted with low phosphorus and magnesium level, will notify Md to replete electrolytes. Awaiting for nephrology and ID consults. Fall and aspiration precautions maintained. Patient educated on plan of care. Will continue with current medical management.
[2019-05-30] MEDS: PANTOPRAZOLE 40 MG TABLET.DR PO SCH (07:37)
[2019-05-30] MEDS: AMIODARONE HCL 200 MG TABLET PO SCH (08:26)
[2019-05-30] MEDS: CARVEDILOL 6.25 MG TABLET PO SCH ×2 (08:26→16:19)
--- NOTE | 2019-05-30 08:30 | NUR ---
Tele/RN - Cardio consult Seen and examined by Dr. Botello with orders, noted and carried out. D/c telemetry and transfer to med-surg level.
[2019-05-30] MEDS: LINAGLIPTIN 5 MG TABLET PO SCH (08:55)
[2019-05-30] MEDS: ASPIRIN EC 81 MG TABLET.DR PO SCH (08:55)
[2019-05-30] MEDS: FUROSEMIDE 40 MG/4 ML VIAL IV SCH ×3 (08:55→16:18)
[2019-05-30] MEDS: Magnesium 1GM/D5W 100ML PREMIX 100 ML IV SCH ×2 (08:55→10:33)
[2019-05-30] MEDS: METFORMIN 500 MG TABLET PO SCH ×2 (08:56→16:18)
[2019-05-30] MEDS: NEUTRA PHOS 1 POWD.PACKET PO SCH ×2 (08:56→16:18)
[2019-05-30] MEDS ORDERED: TAMSULOSIN 0.4 MG CAP.SR.24H PO SCH (09:00)
[2019-05-30] MEDS ORDERED: Sacubitril/Valsartan (Entresto 49 mg-51 mg Tablet) PO SCH (09:00)
[2019-05-30] MEDS: APIXABAN 5 MG TABLET PO SCH ×2 (09:00→16:29)
[2019-05-30] MEDS ORDERED: FUROSEMIDE 40 MG TABLET PO SCH (09:00)
[2019-05-30] MEDS ORDERED: glipiZIDE XL 10 MG TAB.OSM.24 PO SCH (09:00)
[2019-05-30] MEDS: ONDANSETRON HCL/PF 4 MG/2 ML VIAL IVP PRN ×3 (09:41→21:22)
[2019-05-30 14:47] LABS: APPEARANCE,URINE CLOUDY (CLEAR); BILIRUBIN,URINE NEGATIVE (NEGATIVE); BLOOD, URINE MODERATE Ery/uL (NEGATIVE); COLOR,URINE YELLOW (YELLOW); KETONES,URINE NEGATIVE (NEGATIVE); LEUKOCYTE ESTERASE ,URINE NEGATIVE (NEGATIVE); NITRITE, URINE NEGATIVE (NEGATIVE); PROTEIN,URINE 100 mg/dl (NEGATIVE); UGLUCOSE 100 MG/DL mg/dL (NEGATIVE); UROBILINOGEN,URINE 0.2 EU/dL (0.2)
[2019-05-30 15:03] LABS: CREATININE, URINE 159.7 MG/DL (30.0-125.0); URINE TOTAL PROTEIN 111.2 mg/dL (0-11.9)
[2019-05-30 15:05] LABS: BACTERIA,URINE 1+ /HPF (None Seen); WBC,URINE 0-2 /HPF (0-3)
[2019-05-30 15:06] LABS: SQUAMOUS EPITHELIAL CELL,UR Few /HPF (None Seen); URINE AMORPHOUS URATE Many /HPF (None Seen)
[2019-05-30 15:26] LABS: EOSINOPHIL,URINE None Seen
[2019-05-30 16:00] VITALS: BP 110/67
--- NOTE | 2019-05-30 17:15 | NUR ---
MS/RN - End of shift summary Patient in no acute distress, remain afebrile, stable on room air, denies pain, c/o nausea, IV Zofran given with relief, phosphorus and magnesium replaced. Lasix 40 mg IVP x 3 doses given for pulmonary vascular congestion, diuresing well, no hematuria noted. All needs attended. Will continue with current plan of care.
[2019-05-30 19:30] VITALS: BP 96/60
--- NOTE | 2019-05-30 19:30 | NUR ---
MS RN NOTES PATIENT IN BED, AWAKE. ALERT AND ORIENTED X 4. BREATHING EVEN AND UNLABORED ON NC 2L. DENIES ACUTE RESPIRATORY DISTRESS, NO ACUTE PAIN. IV ON LAC #20G, CLEAN DRY AND INTACT. SHOWS NO REDNESS, NO INFILTRATION. SAFETY PRECAUTIONS IN PLACE. BED IN LOWEST POSITION, LOCKED, AND CALL LIGHT KEPT WITHIN REACH. WILL CONTINUE TO MONITOR.
[2019-05-30] MEDS: TAMSULOSIN 0.4 MG CAP.SR.24H PO SCH (21:22)
[2019-05-30 21:50] VITALS: BP 93/60
[2019-05-30] MEDS ORDERED: TEMAZEPAM 15 MG CAPSULE PO PRN (23:00)
[2019-05-31] MEDS: PIPERACILLIN /TAZOBACTAM 3.375 G in IV D5W 50 ML IV SCH (05:26)
[2019-05-31 06:31] LABS: ALBUMIN 2.8 g/dL (3.4-5.0); BILIRUBIN,TOTAL 2.3 mg/dL (0.2-1.0); CALCIUM, SERUM 8.1 mg/dL (8.5-10.1); CREATININE 1.7 mg/dL (0.6-1.3); MAGNESIUM 2.2 mg/dL (1.8-2.4); PHOSPHORUS 3.1 mg/dL (2.5-4.9); TOTAL PROTEIN, SERUM 6.2 g/dL (6.4-8.2)
--- NOTE | 2019-05-31 06:35 | NUR ---
MS RN NOTES PATIENT IN BED, ASLEEP, ALERT AND ORIENTED X 4. BREATHING EVEN AND UNLABORED ON NC 2L. DENIES ACUTE RESPIRATORY DISTRESS, NO ACUTE PAIN. IV ON LAC #20G, CLEAN DRY AND INTACT. SHOWS NO REDNESS, NO INFILTRATION. ALL DUE MEDICATIONS GIVEN. SAFETY PRECAUTIONS IN PLACE. BED IN LOWEST POSITION, LOCKED, AND CALL LIGHT KEPT WITHIN REACH. WILL ENDORSE TO ONCOMING NURSE.
[2019-05-31 06:48] LABS: POTASSIUM 3.9 mmol/L (3.5-5.1)
[2019-05-31] MEDS: BLOOD SUGAR DIAGNOSTIC 1 EACH STRIP IN SCH ×4 (06:49→21:39)
[2019-05-31] MEDS: INSULIN REGULAR, HUMAN 100 UNIT/ML 3 ML VIAL SQ PRN ×2 (06:53→18:20)
[2019-05-31] MEDS: VANCOMYCIN 0.75 GM in IV D5W 250 ML IV SCH (07:00)
[2019-05-31 07:26] LABS: BASOPHILS # (AUTO) 0.1 /CMM (0.0-0.2); HEMATOCRIT 32 % (39-51); HEMOGLOBIN 10.5 g/dL (13.5-17.5); LYMPHOCYTES # (AUTO) 1.5 /CMM (0.8-4.8); MEAN CORPUSCULAR HGB CONC 33 g/dl (31.0-36.0); MONOCYTES % (AUTO) 4.1 % (2.0-12.0); NEUTROPHILS % (AUTO) 88.9 % (43.0-81.0)
[2019-05-31 08:00] VITALS: BP 89/54
--- NOTE | 2019-05-31 08:00 | NUR ---
RN NOTES RECEIVED PATIENT IN THE BED A/O X3/4 NO ACUTE RESPIRATORY DISTRESS, V/S TAKEN BP 110/80, P-60 HELD BP MEDICATION, PATIENT WAS COMPLAINING OF WEAKNESS, NO ENERGY TO GET OUT OF BED, TOLERATED 20% OF BREAKFAST. SEEN BY HOSPITALIST MEMO DOAN, AND RANGER AIDE Dr RODRIGUEZ,. NEW ORDER MERREM ANTIBIOTIC WAITING FOR PHARMACY VERIFICATION TO ADMINISTER. PATIENT WAS ASKING WARM BLANKET BECAUSE OF COLD. CALL LIGHT WITHIN TO REACH . IV ACCESS ON LEFT AC INTACT. CONTINUED MONITORING.
[2019-05-31 08:10] VITALS: BP 110/85
[2019-05-31] MEDS: AMIODARONE HCL 200 MG TABLET PO SCH (08:29)
[2019-05-31] MEDS: ASPIRIN EC 81 MG TABLET.DR PO SCH (08:29)
[2019-05-31] MEDS: LINAGLIPTIN 5 MG TABLET PO SCH (08:31)
[2019-05-31] MEDS: CARVEDILOL 6.25 MG TABLET PO SCH (08:31)
[2019-05-31] MEDS: METFORMIN 500 MG TABLET PO SCH (08:31)
[2019-05-31] MEDS: PANTOPRAZOLE 40 MG TABLET.DR PO SCH (08:31)
--- NOTE | 2019-05-31 08:46 | NUR ---
rn notes administered Tylenol 650 mg po prn for generalized pain per patient request, continued monitoring.
[2019-05-31 09:45] LABS: BASOPHILS % (AUTO) 0.3 % (0.0-2.0); EOSINOPHILS % (AUTO) 0.1 % (0.0-6.0); LYMPHOCYTES % (AUTO) 6.6 % (20.0-44.0); MEAN CORPUSCULAR VOLUME 99 fL (80-96); NEUTROPHILS # (AUTO) 20.8 /CMM (1.8-8.9); PLATELET COUNT (AUTO) 139 /CMM (150-450); WHITE BLOOD COUNT (AUTO) 23.4 K/uL (4.3-11.0)
[2019-05-31] MEDS: APIXABAN 5 MG TABLET PO SCH ×2 (11:14→17:08)
[2019-05-31] MEDS: MEROPENEM 1 G in IV NS 0.9% 100 ML IV SCH ×2 (11:27→20:38)
--- NOTE | 2019-05-31 12:00 | NUR ---
rn notes patient refused blood sugar to be taken , family next to the bed , safety precaution maintained all the time.
[2019-05-31] MEDS: VANCOMYCIN 1 GM in IV D5W 250 ML IV SCH (14:22)
[2019-05-31 16:00] VITALS: BP 98/61
[2019-05-31] MEDS: glipiZIDE XL 10 MG TAB.OSM.24 PO SCH (17:07)
[2019-05-31] MEDS: Icosapent Ethyl (Vascepa) 1 GM PO SCH (17:07)
--- NOTE | 2019-05-31 18:23 | NUR ---
rn notes BS-218 mg/dl, coverage given, v/s wnl. patient tolerated dinner 25 %, administered scheduled medication. patient ambulatory self care.. iv access on lefr hand intact. call light within to reach. safety precaution maintained all the time.
[2019-05-31 20:00] VITALS: BP 103/63
[2019-05-31] MEDS: ONDANSETRON HCL/PF 4 MG/2 ML VIAL IVP PRN (20:47)
[2019-05-31] MEDS: TAMSULOSIN 0.4 MG CAP.SR.24H PO SCH ×2 (21:39→22:00)
--- NOTE | 2019-05-31 22:00 | NUR ---
MS RN NOTES BS CHECKED 136. PT REFUSED TO HAVE INSULIN COVERAGE AT THIS TIME. EXPLAINED TO PT IMPORTANCE OF INSULIN COVERAGE IN HIS POC BUT PT STILL REFUSED. PER PT, HE'S UNABLE TO EAT MUCH D/T N/V. WILL CONTINUE TO MONITOR.
[2019-06-01] MEDS: VANCOMYCIN 1 GM in IV D5W 250 ML IV SCH ×2 (03:43→14:38)
--- NOTE | 2019-06-01 06:28 | NUR ---
MS RN NOTES AWAKE & RESPONSIVE. NOT IN ANY DISTRESS. NO SOB NOTED. DENIES AY PAIN OR DISCOMFORT AT THIS TIME. WITH IV-HL PATENT & INTACT. MONITORED ACCORDINGLY. CALL LIGHT WITHIN REACH. BED IN LOWEST POSITION. SR UP X 2 FOR SAFETY. WILL ENDORSE TO NEXT SHIFT.
[2019-06-01] MEDS: BLOOD SUGAR DIAGNOSTIC 1 EACH STRIP IN SCH ×4 (06:47→21:57)
[2019-06-01 06:56] LABS: BASOPHILS % (AUTO) 0.2 % (0.0-2.0); EOSINOPHILS % (AUTO) 0.4 % (0.0-6.0); HEMATOCRIT 33 % (39-51); LYMPHOCYTES # (AUTO) 1.8 /CMM (0.8-4.8); LYMPHOCYTES % (AUTO) 11.4 % (20.0-44.0); MEAN CORPUSCULAR HGB CONC 34 g/dl (31.0-36.0); MEAN CORPUSCULAR VOLUME 98 fL (80-96); MONOCYTES # (AUTO) 0.7 /CMM (0.1-1.30); MONOCYTES % (AUTO) 4.2 % (2.0-12.0); NEUTROPHILS # (AUTO) 13.5 /CMM (1.8-8.9); NEUTROPHILS % (AUTO) 83.8 % (43.0-81.0); PLATELET COUNT (AUTO) 151 /CMM (150-450); RED BLOOD CELL COUNT(AUTO) 3.31 MIL/uL (4.5-6.0); WHITE BLOOD COUNT (AUTO) 16.1 K/uL (4.3-11.0)
[2019-06-01 07:20] LABS: CALCIUM, SERUM 8.5 mg/dL (8.5-10.1); CREATININE 1.3 mg/dL (0.6-1.3); POTASSIUM 3.7 mmol/L (3.5-5.1)
[2019-06-01 08:00] VITALS: BP 102/60
[2019-06-01] MEDS: glipiZIDE XL 10 MG TAB.OSM.24 PO SCH (08:00)
--- NOTE | 2019-06-01 08:00 | NUR ---
MS RN NOTES PATIENT IN BED, AWAKE. ALERT AND ORIENTED X 4. BREATHING EVEN AND UNLABORED ON NC 2L. DENIES ACUTE CARIDIAC OR RESPIRATORY DISTRESS, NO ACUTE PAIN. IV ON LAC #20G, CLEAN DRY AND INTACT. SHOWS NO S/S OF REDNESS, OR INFECTION NO INFILTRATION. SAFETY PRECAUTIONS IN PLACE. BED IN LOWEST POSITION, LOCKED, AND CALL LIGHT KEPT WITHIN REACH. WILL CONTINUE TO MONITOR.
[2019-06-01] MEDS: ASPIRIN EC 81 MG TABLET.DR PO SCH (08:03)
[2019-06-01] MEDS: Icosapent Ethyl (Vascepa) 1 GM PO SCH ×2 (08:04→16:31)
[2019-06-01] MEDS: LINAGLIPTIN 5 MG TABLET PO SCH (08:06)
[2019-06-01] MEDS: MEROPENEM 1 G in IV NS 0.9% 100 ML IV SCH (08:07)
[2019-06-01] MEDS: APIXABAN 5 MG TABLET PO SCH ×2 (08:10→16:41)
[2019-06-01] MEDS: PANTOPRAZOLE 40 MG TABLET.DR PO SCH (08:13)
[2019-06-01] MEDS: AMIODARONE HCL 200 MG TABLET PO SCH (08:16)
[2019-06-01] MEDS: FUROSEMIDE 40 MG/4 ML VIAL IV SCH ×3 (09:43→16:30)
[2019-06-01] MEDS: POTASSIUM CHLORIDE 20 MEQ TAB.PRT.SR PO SCH ×3 (09:43→11:25)
--- NOTE | 2019-06-01 14:17 | NUR ---
PT VOIDED PT VOIDED 200CC. NO ABD DISTENTION. ENCOURAGED FLUIDS
[2019-06-01] MEDS: CEFTRIAXONE 1 G in IV D5W 50 ML IV SCH (16:30)
[2019-06-01] MEDS: INSULIN REGULAR, HUMAN 100 UNIT/ML 3 ML VIAL SQ PRN (17:06)
--- NOTE | 2019-06-01 17:24 | NUR ---
MS RN CLOSING NOTES PT IN BED. AWAKE, ALERT AND ORIENTED X4. CALM AND COOPERATIVE. VERY PLEASANT MALE. NO CARDIAC OR RESPIRATORY DISTRESS NOTED. BREATH SOUNDS CLEAR. BREATHING EVEN AND UNLABORED. IV SITE INTACT NOTED ON L HAND G20. BS CHECKED PRIOR TO DINNER NOTED AT 183. INSULIN NOT ADMINISTERED SINCE PT STATES THAT HE HASNT BEEN EATING MUCH. ALL DUE MEDS GIVEN. NO ASE NOTED. TOLERATED WELL.
--- NOTE | 2019-06-01 19:40 | NUR ---
MS RN NOTES RECEIVED LAYING COMFORTABLY ON BED,A/O X4,SPEAK MACEDONIAN,UNDERSTAND SPANISH.SALINE LOCK LEFT HAND INTACT AND PATENT.FAMILY MEMBERS AT BEDSIDE.DENIES DISCOMFORTS AT THE MOMENT.CALL LIGHT IN REACH,NEEDS ANTICIPATED.
[2019-06-01 20:00] VITALS: BP 104/77
[2019-06-01] MEDS: TAMSULOSIN 0.4 MG CAP.SR.24H PO SCH (21:59)
--- NOTE | 2019-06-01 22:15 | NUR ---
MS RN NOTES ACCU-CHECK BLOOD SUGAR CHECK 176,REFUSED INSULIN COVERAGE.PATIENT SAYS,HE'S NOT TAKING INSULIN,ONLY PILL FOR DIABETES.
--- NOTE | 2019-06-02 06:00 | NUR ---
MS RN NOTES ACCU-CHECK BLOOD SUGAR CHECK 124,NO INSULIN COVERAGE.
--- NOTE | 2019-06-02 06:18 | NUR ---
MS RN NOTES FAIRLY RESTED,SLEPT WITH INTERVALS,AFEBRILE.IN NO ACUTE DISTRESS.CALL LIGHT IN REACH,NEEDS ATTENDED.WILL ENDORSE TO DAY NURSE FOR CHRISTIANO
[2019-06-02 06:31] LABS: BASOPHILS # (AUTO) 0.1 /CMM (0.0-0.2); BASOPHILS % (AUTO) 0.7 % (0.0-2.0); HEMATOCRIT 33 % (39-51); HEMOGLOBIN 11.3 g/dL (13.5-17.5); LYMPHOCYTES # (AUTO) 1.7 /CMM (0.8-4.8); LYMPHOCYTES % (AUTO) 19.7 % (20.0-44.0); MEAN CORPUSCULAR HGB CONC 34 g/dl (31.0-36.0); MEAN CORPUSCULAR VOLUME 97 fL (80-96); MONOCYTES # (AUTO) 0.5 /CMM (0.1-1.30); NEUTROPHILS # (AUTO) 6.3 /CMM (1.8-8.9); NEUTROPHILS % (AUTO) 72.6 % (43.0-81.0); PLATELET COUNT (AUTO) 170 /CMM (150-450); RED BLOOD CELL COUNT(AUTO) 3.41 MIL/uL (4.5-6.0); WHITE BLOOD COUNT (AUTO) 8.6 K/uL (4.3-11.0)
[2019-06-02 07:02] LABS: ALBUMIN 2.7 g/dL (3.4-5.0); BILIRUBIN,TOTAL 1.1 mg/dL (0.2-1.0); CALCIUM, SERUM 8.3 mg/dL (8.5-10.1); CREATININE 1.2 mg/dL (0.6-1.3); MAGNESIUM 2.2 mg/dL (1.8-2.4); PHOSPHORUS 2.2 mg/dL (2.5-4.9); POTASSIUM 3.7 mmol/L (3.5-5.1); TOTAL PROTEIN, SERUM 6.4 g/dL (6.4-8.2)
[2019-06-02 07:10] LABS: FREE PSA 1.51 ng/mL (0.00-45); PROSTATE SPECIFIC ANTIGEN SCR 9.76 ng/mL (0.00-4.00)
[2019-06-02] MEDS: BLOOD SUGAR DIAGNOSTIC 1 EACH STRIP IN SCH ×4 (07:30→21:29)
--- NOTE | 2019-06-02 07:57 | NUR ---
MS RN NOTES RECEIVED PATIENT IN BED, ASLEEP, ALERT AND ORIENTED X 4. BREATHING EVEN AND UNLABORED. DENIES ACUTE RESPIRATORY DISTRESS, NO ACUTE PAIN. IV ON LAC #20G, CLEAN DRY AND INTACT. SHOWS NO REDNESS, NO INFILTRATION. SAFETY PRECAUTIONS IN PLACE. BED IN LOWEST POSITION, LOCKED, AND CALL LIGHT KEPT WITHIN REACH. WILL CONTINUE TO MONITORE.
[2019-06-02 08:00] VITALS: BP 125/62
[2019-06-02] MEDS: glipiZIDE XL 10 MG TAB.OSM.24 PO SCH (08:47)
[2019-06-02] MEDS: APIXABAN 5 MG TABLET PO SCH ×2 (09:00→16:59)
[2019-06-02] MEDS: Icosapent Ethyl (Vascepa) 1 GM PO SCH ×2 (09:01→16:51)
[2019-06-02] MEDS: AMIODARONE HCL 200 MG TABLET PO SCH (09:05)
[2019-06-02] MEDS: ASPIRIN EC 81 MG TABLET.DR PO SCH (09:05)
[2019-06-02] MEDS: POTASSIUM CHLORIDE 20 MEQ TAB.PRT.SR PO SCH ×3 (09:11→11:50)
[2019-06-02] MEDS: PANTOPRAZOLE 40 MG TABLET.DR PO SCH (09:11)
[2019-06-02] MEDS: LINAGLIPTIN 5 MG TABLET PO SCH (09:11)
[2019-06-02] MEDS: INSULIN REGULAR, HUMAN 100 UNIT/ML 3 ML VIAL SQ PRN ×2 (09:56→12:02)
[2019-06-02] MEDS: FUROSEMIDE 100 MG/10 ML VIAL IV SCH ×3 (10:01→16:54)
[2019-06-02 11:07] LABS: PTH, INTACT 60 pg/mL (15-65)
[2019-06-02 13:07] LABS: *SPE A/G RATIO 1.1 (0.7-1.7); *SPE ALBUMIN 2.8 g/dL (2.9-4.4); *SPE ALPHA-1-GLOBULIN 0.3 g/dL (0.0-0.4); *SPE ALPHA-2-GLOBULIN 0.5 g/dL (0.4-1.0); *SPE BETA GLOBULIN 0.9 g/dL (0.7-1.3); *SPE GLOBULIN, TOTAL 2.6 g/dL (2.2-3.9); *SPE M-SPIKE Not Observed g/dL (Not Observed); *SPEGAMMA GLOBULIN 0.9 g/dL (0.4-1.8)
[2019-06-02] MEDS ORDERED: K PHOS NEUTRAL 250 MG TABLET PO ONE (15:30)
[2019-06-02 16:13] VITALS: BP 105/70
[2019-06-02] MEDS: METRONIDAZOLE 500MG/ NS 100ML 500 MG in PREMIX 1 EA IV SCH ×2 (16:42→23:24)
[2019-06-02] MEDS: CEFTRIAXONE 1 G in IV D5W 50 ML IV SCH ×2 (16:51→18:00)
--- NOTE | 2019-06-02 17:07 | NUR ---
TELE/RN NOTES BLOOD SUGAR 106 NO COVERAGE.
--- NOTE | 2019-06-02 18:42 | NUR ---
MS/RN NOTE THE PATIENT IS ALERT AND ORIENTED X4. IN ROOM AIR AND DENIES SOB. RESPIRATION REGULAR AND UNLABORED. DENIES PAIN. THE PATIENT IS IN NO APPARENT DISTRESS. LEFT HAND G 20 PATENT AND SALINE LOCKED. BED LOW AND LOCKED. SIDE RAILS UP X3. CALL LIGHT WITHIN REACH. WILL ENDORSE TO MEDICAL CODING MANAGER.
--- NOTE | 2019-06-02 19:40 | NUR ---
MS RN NOTES RECEIVED LAYING COMFORTABLY ON BED,FAMILY MEMBERS AT BEDSIDE.DENIES DISCOMFORTS AT THE MOMENT.NO ABDOMINAL PAIN.SALINE LOCK LEFT HAND INTACT AND PATENT.OFFERED SLEEPING LATER ON FOR TONIGHT BUT REFUSED.CALL LIGHT IN REACH,NEEDS ANTICIPATED.
[2019-06-02 20:00] VITALS: BP 115/57
[2019-06-02 20:29] VITALS: BP 115/57
[2019-06-02] MEDS: TAMSULOSIN 0.4 MG CAP.SR.24H PO SCH (21:30)
--- NOTE | 2019-06-02 21:30 | NUR ---
MS RN NOTES ACCU-CHECK BLOOD SUGAR CHECK 109,NO INSULIN COVERAGE.
--- NOTE | 2019-06-03 05:30 | NUR ---
MS RN NOTES ACCU-CHECK BLOOD SUGAR CHECK 108,NO INSULIN COVERAGE.
--- NOTE | 2019-06-03 06:17 | NUR ---
MS RN NOTES SLEPT WITH INTERVALS,DENIES DISCOMFORTS.ALSO REFUSED SLEEPING PILL OFFERED AT NIGHT.IN NO ACUTE DISTRESS.FOR D/C PLANNING TODAY TO HOME WHEN MEDICALLY CLEARED.WILL ENDORSE TO DAY NURSE FOR CHRISTIANO.
[2019-06-03] MEDS: BLOOD SUGAR DIAGNOSTIC 1 EACH STRIP IN SCH ×2 (06:46→12:12)
[2019-06-03 06:47] LABS: BASOPHILS # (AUTO) 0.1 /CMM (0.0-0.2); BASOPHILS % (AUTO) 0.6 % (0.0-2.0); EOSINOPHILS % (AUTO) 1.1 % (0.0-6.0); HEMATOCRIT 32 % (39-51); LYMPHOCYTES # (AUTO) 1.7 /CMM (0.8-4.8); LYMPHOCYTES % (AUTO) 18.3 % (20.0-44.0); MEAN CORPUSCULAR HGB CONC 34 g/dl (31.0-36.0); MEAN CORPUSCULAR VOLUME 97 fL (80-96); MONOCYTES # (AUTO) 0.7 /CMM (0.1-1.30); MONOCYTES % (AUTO) 7.9 % (2.0-12.0); NEUTROPHILS # (AUTO) 6.7 /CMM (1.8-8.9); NEUTROPHILS % (AUTO) 72.1 % (43.0-81.0); PLATELET COUNT (AUTO) 167 /CMM (150-450); RED BLOOD CELL COUNT(AUTO) 3.33 MIL/uL (4.5-6.0); WHITE BLOOD COUNT (AUTO) 9.3 K/uL (4.3-11.0)
--- NOTE | 2019-06-03 07:15 | NUR ---
MS RN NOTES PATIENT IN BED ALERT ORIENTED X 4. NO ACUTE DISTRESS NOTED. BREATHING UNLABORED. IV ACCESS PATENT AND INTACT, NO REDNESS OR SWELLING NOTED. SAFETY MEASURES IN PLACE. CALL LIGHT WITHIN REACH. WILL ENDORSE TO NIGHT NURSE FOR CONTINUITY OF CARE. Addendum: 06/03/19 at 1244 by ELISEO SARAVIA RN disregard above notes wrong patient
--- NOTE | 2019-06-03 07:16 | NUR ---
MS RN NOTES PATIENT IN BED ALERT ORIENTED X 4. NO ACUTE DISTRESS NOTED. BREATHING UNLABORED. IV ACCESS PATENT AND INTACT, NO REDNESS OR SWELLING NOTED. SAFETY MEASURES IN PLACE. CALL LIGHT WITHIN REACH. WILL CONTINUE TO MONITOR ACCORDINGLY
[2019-06-03 07:26] LABS: ALBUMIN 2.8 g/dL (3.4-5.0); CALCIUM, SERUM 8.2 mg/dL (8.5-10.1); CREATININE 1.2 mg/dL (0.6-1.3); MAGNESIUM 1.9 mg/dL (1.8-2.4); POTASSIUM 4.3 mmol/L (3.5-5.1); TOTAL PROTEIN, SERUM 6.3 g/dL (6.4-8.2)
[2019-06-03] MEDS: PANTOPRAZOLE 40 MG TABLET.DR PO SCH (07:45)
[2019-06-03] MEDS: ASPIRIN EC 81 MG TABLET.DR PO SCH (08:39)
[2019-06-03] MEDS: METRONIDAZOLE 500MG/ NS 100ML 500 MG in PREMIX 1 EA IV SCH ×2 (08:39→16:00)
[2019-06-03] MEDS: LINAGLIPTIN 5 MG TABLET PO SCH (08:39)
[2019-06-03] MEDS: AMIODARONE HCL 200 MG TABLET PO SCH (08:40)
[2019-06-03] MEDS: glipiZIDE XL 10 MG TAB.OSM.24 PO SCH (08:41)
[2019-06-03] MEDS: Icosapent Ethyl (Vascepa) 1 GM PO SCH (08:41)
[2019-06-03] MEDS: APIXABAN 5 MG TABLET PO SCH (08:42)
[2019-06-03] MEDS: INSULIN REGULAR, HUMAN 100 UNIT/ML 3 ML VIAL SQ PRN (12:15)
--- NOTE | 2019-06-03 14:03 | NUR ---
MS RN NOTES PATIENT SEEN AND EVALUATED BY [employer]ULES FOOTBALLER FRANKI VASQUEZ WITH NEW ORDERS MADE. NOTED AND CARRIED OUT.
[2019-06-03] MEDS ORDERED: METR-147 PO (14:05)
[2019-06-03] MEDS ORDERED: LEVO500T90 PO (14:05)
[2019-06-03 16:00] VITALS: BP 121/70
--- NOTE | 2019-06-03 16:56 | NUR ---
MS SERVICE ASSISTANT NOTES PATIENT DISCHARGE HOME WITH SON WITH STABLE VITAL SIGNS, ALERT ORIENTED X 4. AMBULATORY WITH STEADY GAIT. NO ACUTE DISTRESS NOTED, BREATHING UNLABORED, NO SOB NOTED. DENIED ANY PAIN. DISCHARGE INSTRUCTIONS GIVEN TO THE PATIENT INCLUDING FOLLOW UP WITH PCP AND UROLOGY AND NEW PRESCRIPTIONS, VERBALIZED UNDERSTANDING. ALL BELONGINGS ACCOUNTED FOR INCLUDING HOME MEDICATIONS TAKEN FROM THE PHARMACY.SKIN IS INTACT. ASSISTED TO THE LOBBY , PICKED UP VIA PRIVATE CAR IN STABLE CONDITION.
== END 2019-06-03 17:00 | disposition home or self-care (01) | DRG 871 ==
LOC: ER 15:15 → TELE 18:25 → MED 05-30 12:30
PROVIDERS: ADMIT Hospitalist; ATTEND Nurse Practitioner Acute Care
DX: A41.9 Sepsis, unspecified organism (principal); N17.0 Acute kidney failure with tubular necrosis; I21.A1 Myocardial infarction type 2; I50.23 Acute on chronic systolic (congestive) heart failure; J18.9 Pneumonia, unspecified organism; K57.32 Diverticulitis of large intestine without perforation or abscess without bleeding; E87.1 Hypo-osmolality and hyponatremia; I13.0 Hypertensive heart and chronic kidney disease with heart failure and stage 1 through stage 4 chronic kidney disease, or unspecified chronic kidney disease; E87.2 Acidosis; R18.8 Other ascites; E11.22 Type 2 diabetes mellitus with diabetic chronic kidney disease; R65.20 Severe sepsis without septic shock; D69.6 Thrombocytopenia, unspecified; N18.9 Chronic kidney disease, unspecified; E78.5 Hyperlipidemia, unspecified; D64.9 Anemia, unspecified; Z79.82 Long term (current) use of aspirin; Z79.84 Long term (current) use of oral hypoglycemic drugs; E83.42 Hypomagnesemia; F32.9 Major depressive disorder, single episode, unspecified; I25.10 Atherosclerotic heart disease of native coronary artery without angina pectoris; I25.2 Old myocardial infarction; E66.9 Obesity, unspecified; K21.9 Gastro-esophageal reflux disease without esophagitis; K76.0 Fatty (change of) liver, not elsewhere classified; I27.20 Pulmonary hypertension, unspecified; Z95.810 Presence of automatic (implantable) cardiac defibrillator; Z95.1 Presence of aortocoronary bypass graft; Z87.891 Personal history of nicotine dependence; Z87.01 Personal history of pneumonia (recurrent); Z79.899 Other long term (current) drug therapy; Z79.02 Long term (current) use of antithrombotics/antiplatelets; N40.0 Benign prostatic hyperplasia without lower urinary tract symptoms; E83.39 Other disorders of phosphorus metabolism; Z79.01 Long term (current) use of anticoagulants; B96.20 Unspecified Escherichia coli [E. coli] as the cause of diseases classified elsewhere; N30.91 Cystitis, unspecified with hematuria; I70.0 Atherosclerosis of aorta; D63.8 Anemia in other chronic diseases classified elsewhere
CPT/HCPCS: 36415; 71045-TC; 76705-TC; 80048-TC; 80053-TC; 80061-TC; 80074; 80076-TC; 80202-TC; 81000-TC; 82550-TC; 82570-TC; 82962-TC; 83605-TC; 83690-TC; 83735-TC; 83970; 84100-TC; 84153-TC; 84154-TC; 84155; 84155-TC; 84165; 84300-TC; 84443-TC; 84484-TC; 85025-TC; 87040-TC; 87081-TC; 87086-TC; 87186-TC; 87806; 97116-TC; 97530-TC; A4216; G0378; J0696; J1815; J1940; J2185; J2405; J2543; J3370; J3475; J3490; J7030; J7050; J7060; Q9967

== ENCOUNTER 2023-11-06 02:05 | Inpatient (IN) | payer MEDICARE, OTHER ==
[~2023-11-06] VITALS: Ht 172.7 cm; Wt 80.9 kg
[~2023-11-06 02:05] MED LIST changes: +AMIO200T5 PO; +APIX5TAB PO; -ASPI-1152 PO; +ASPI-605 PO; +CARV6.25 PO; -CLOP75TA15 PO; +DEXL60CA3 PO; +FURO-144 PO; -FURO80TA3 PO; +GLIP10TA21 PO; +ICOS1CAP PO; +LEVO500T90 PO; +METR-147 PO; +NITR0.4T48 SL; -POTA20TA83 PO; +SACU1TAB7 PO; +TAMS-12 PO
[2023-11-06] MEDS ORDERED: ONDANSETRON HCL/PF 4 MG/2 ML VIAL ONE (02:36)
[2023-11-06] MEDS: ONDANSETRON HCL/PF - ER 4 MG/2 ML VIAL IV ONE (02:45)
[2023-11-06] MEDS: IV NS 0.9% 1,000 ML IV ONE ×2 (02:45→12:28)
[2023-11-06 03:02] LABS: BASOPHILS % (AUTO) 0.1 % (0.0-2.0); HEMATOCRIT 38 % (39-51); HEMOGLOBIN 12.9 g/dL (13.5-17.5); LYMPHOCYTES # (AUTO) 0.9 K/uL (0.8-4.8); LYMPHOCYTES % (AUTO) 3.9 % (20.0-44.0); MEAN CORPUSCULAR HEMOGLOBIN 32 PG (26.0-33.0); MEAN CORPUSCULAR HGB CONC 34 g/dl (31.0-36.0); MEAN CORPUSCULAR VOLUME 94 fL (80-96); MONOCYTES # (AUTO) 1.3 K/uL (0.1-1.30); MONOCYTES % (AUTO) 5.6 % (2.0-12.0); NEUTROPHILS # (AUTO) 21.4 K/uL (1.8-8.9); NEUTROPHILS % (AUTO) 90.4 % (43.0-81.0); PLATELET COUNT (AUTO) 182 K/uL (150-450); RED BLOOD CELL COUNT(AUTO) 4.05 MIL/uL (4.5-6.0); RED CELL DISTRIBUTION WIDTH 14.8 % (11.5-15.0); WHITE BLOOD COUNT (AUTO) 23.7 K/uL (4.3-11.0)
[2023-11-06 03:14] LABS: APPEARANCE,URINE BLOODY (CLEAR); COLOR,URINE RED (YELLOW); RBC,URINE TOO NUMEROUS TO COUN /HPF (0-2); WBC,URINE 0-2 /HPF (0-3)
[2023-11-06 03:15] LABS: BACTERIA,URINE Rare /HPF (None Seen); SQUAMOUS EPITHELIAL CELL,UR Rare /HPF (None Seen)
[2023-11-06 03:22] LABS: ALANINE AMINOTRANSFERASE 43 U/L (12-78); ALBUMIN 3.7 g/dL (3.4-5.0); ALKALINE PHOSPHATASE 84 U/L (46-116); ASPARTATE AMINOTRANSFERASE 28 U/L (15-37); BILIRUBIN,TOTAL 2.9 mg/dL (0.2-1.0); CALCIUM, SERUM 10.5 mg/dL (8.5-10.1); GLUCOSE 245 mg/dL (74-106); LIPASE 42 U/L (16-77); TOTAL PROTEIN, SERUM 8.4 g/dL (6.4-8.2); UREA NITROGEN, BLOOD 40 mg/dL (7-18)
[2023-11-06] MEDS ORDERED: CEFTRIAXONE 1GM BAG (ER ONLY) 50 ML IV ONE (03:24)
[2023-11-06] MEDS: CEFTRIAXONE 1 G in IV D5W 50 ML IV ONE (03:25)
[2023-11-06 03:38] LABS: LACTIC ACID 2.6 mmol/L (0.4-2.0)
[2023-11-06 03:44] LABS: CARBON DIOXIDE 22 mmol/L (21-32); CHLORIDE 97 mmol/L (98-107); POTASSIUM 3.3 mmol/L (3.5-5.1); SODIUM SERUM 135 mmol/L (136-145)
[2023-11-06] MEDS ORDERED: LIDOCAINE 2% JEL UROJET 10 ML MM ONE (04:40)
[2023-11-06] MEDS ORDERED: MAG HYDROX/AL HYDROX/SIMETH 30 ML UDC PO PRN (06:00)
[2023-11-06] MEDS ORDERED: IV NS 0.9% 1,000 ML IV PRN (06:00)
[2023-11-06] MEDS ORDERED: ACETAMINOPHEN 325 MG TABLET PO PRN (06:00)
[2023-11-06] MEDS ORDERED: MAGNESIUM HYDROXIDE 30 ML UDC PO PRN (06:00)
[2023-11-06] MEDS ORDERED: ZOLPIDEM TARTRATE 5 MG TABLET PO PRN (06:00)
[2023-11-06] MEDS ORDERED: Z GUARD REMEDY 4 OZ OINT TP PRN (06:00)
[2023-11-06] MEDS: POTASSIUM CHLORIDE 20 MEQ TAB.PRT.SR PO ONE (06:22)
[2023-11-06 07:23] LABS: BASOPHILS # (AUTO) 0.1 K/uL (0.0-0.2); BASOPHILS % (AUTO) 0.5 % (0.0-2.0); HEMATOCRIT 36 % (39-51); HEMOGLOBIN 12.2 g/dL (13.5-17.5); LYMPHOCYTES % (AUTO) 4.2 % (20.0-44.0); MEAN CORPUSCULAR HEMOGLOBIN 32 PG (26.0-33.0); MEAN CORPUSCULAR HGB CONC 34 g/dl (31.0-36.0); MEAN CORPUSCULAR VOLUME 95 fL (80-96); MONOCYTES # (AUTO) 1.3 K/uL (0.1-1.30); MONOCYTES % (AUTO) 5.4 % (2.0-12.0); NEUTROPHILS # (AUTO) 21.5 K/uL (1.8-8.9); NEUTROPHILS % (AUTO) 89.9 % (43.0-81.0); PLATELET COUNT (AUTO) 154 K/uL (150-450); RED BLOOD CELL COUNT(AUTO) 3.81 MIL/uL (4.5-6.0); RED CELL DISTRIBUTION WIDTH 14.8 % (11.5-15.0); WHITE BLOOD COUNT (AUTO) 23.9 K/uL (4.3-11.0)
[2023-11-06 07:30] VITALS: BP 109/65; TEMP 99.7; O2SAT 97
[2023-11-06 07:32] LABS: BILIRUBIN,DIRECT 0.5 mg/dL (0.0-0.2)
[2023-11-06 07:34] LABS: LACTIC ACID REFLEX 2.5 mmol/L (0.4-1.9)
[2023-11-06 07:37] LABS: ALBUMIN 3.3 g/dL (3.4-5.0); BILIRUBIN,DIRECT 0.5 mg/dL (0.0-0.2); BILIRUBIN,TOTAL 2.7 mg/dL (0.2-1.0); CALCIUM, SERUM 9.7 mg/dL (8.5-10.1); CREATININE 2.1 mg/dL (0.6-1.3); MAGNESIUM 2.2 mg/dL (1.8-2.4); PHOSPHORUS 3.8 mg/dL (2.5-4.9); TOTAL PROTEIN, SERUM 7.7 g/dL (6.4-8.2)
[2023-11-06 07:42] LABS: LYMPHOCYTES % (MANUAL) 4 % (16-48); MONOCYTES % (MANUAL) 5 % (0-11.0); MYELOCYTES % 1 % (0-0); NEUTROPHILS % (MANUAL) 90 (42-76); PLATELET ESTIMATE ADEQUATE
[2023-11-06 09:00] VITALS: BP 109/65; TEMP 99.7; O2SAT 97
[2023-11-06] MEDS: ENOXAPARIN SODIUM 40 MG/0.4 ML DISP.SYRIN SQ SCH (09:00)
[2023-11-06] MEDS ORDERED: DEXTROSE 50%-WATER 50 ML DISP.SYRIN IV PRN (09:30)
[2023-11-06] MEDS: PANTOPRAZOLE 40 MG TABLET.DR PO SCH (10:01)
[2023-11-06] MEDS ORDERED: ONDANSETRON HCL/PF 4 MG/2 ML VIAL IV PRN (10:30)
[2023-11-06] MEDS: BLOOD SUGAR DIAGNOSTIC 1 EACH STRIP IN SCH (11:59)
[2023-11-06] MEDS: INSULIN REGULAR, HUMAN 100 UNIT/ML 3 ML VIAL SQ PRN (12:01)
[2023-11-06] MEDS ORDERED: NITROGLYCERIN 0.4 MG/TAB BOTTLE SL SCH (13:00)
[2023-11-06] MEDS ORDERED: TAMSULOSIN 0.4 MG CAP.SR.24H PO PRN (13:00)
[2023-11-06] MEDS ORDERED: VASCEPA PO SCH (13:00)
[2023-11-06] MEDS ORDERED: CARV3.122 PO (15:17)
[2023-11-06] MEDS ORDERED: DAPA10TA PO (15:17)
[2023-11-06] MEDS ORDERED: SACU1TAB PO (15:17)
[2023-11-06] MEDS ORDERED: VERQUVO PO (15:17)
[2023-11-06] MEDS ORDERED: SOTA120T PO (15:17)
[2023-11-06] MEDS ORDERED: LOSA25TA27 PO (15:17)
[2023-11-06] MEDS ORDERED: FERR325T24 PO (15:17)
[2023-11-06] MEDS ORDERED: MAGN400T52 PO (15:17)
[2023-11-06] MEDS ORDERED: FINA5TAB11 PO (15:17)
[2023-11-06] MEDS ORDERED: BUME1TAB34 PO (15:17)
[2023-11-06] MEDS ORDERED: POTA-88 PO (15:17)
[2023-11-06] MEDS ORDERED: DIGO125T20 PO (15:17)
[2023-11-06 16:00] VITALS: BP 96/64; TEMP 98.6; O2SAT 96
[2023-11-06] MEDS: CARVEDILOL 6.25 MG TABLET PO SCH (17:00)
[2023-11-06] MEDS: SACUBITRIL/VALSARTAN 1 EACH TABLET PO SCH (17:00)
[2023-11-06] MEDS: FUROSEMIDE 40 MG TABLET PO SCH (17:01)
[2023-11-06] MEDS: ONDANSETRON HCL/PF 4 MG/2 ML VIAL IVP PRN (17:14)
[2023-11-06] MEDS ORDERED: VERQUVO 2.5 MG PO SCH (18:30)
[2023-11-06] MEDS: BUMETANIDE INJ 8 MG in IV NS 0.9% 48 ML IV ONE (18:30)
[2023-11-06 20:00] VITALS: BP 102/67; TEMP 98.4; O2SAT 95
[2023-11-06 20:05] VITALS: BP 102/67; TEMP 98.4; O2SAT 95
[2023-11-06 20:08] LABS: FREE PSA 2.57 ng/mL (0.00-45); PROSTATE SPECIFIC ANTIGEN SCR 4.44 ng/mL (0.00-4.00)
[2023-11-07] MEDS: CEFTRIAXONE 1 G in IV D5W 50 ML IV SCH (02:54)
[2023-11-07 06:58] LABS: BASOPHILS % (AUTO) 0.2 % (0.0-2.0); EOSINOPHILS % (AUTO) 0.1 % (0.0-6.0); HEMATOCRIT 35 % (39-51); HEMOGLOBIN 11.9 g/dL (13.5-17.5); LYMPHOCYTES # (AUTO) 1.4 K/uL (0.8-4.8); LYMPHOCYTES % (AUTO) 6.1 % (20.0-44.0); MEAN CORPUSCULAR HEMOGLOBIN 32 PG (26.0-33.0); MEAN CORPUSCULAR HGB CONC 34 g/dl (31.0-36.0); MEAN CORPUSCULAR VOLUME 95 fL (80-96); MONOCYTES # (AUTO) 1.2 K/uL (0.1-1.30); MONOCYTES % (AUTO) 5.4 % (2.0-12.0); NEUTROPHILS # (AUTO) 20.2 K/uL (1.8-8.9); NEUTROPHILS % (AUTO) 88.2 % (43.0-81.0); PLATELET COUNT (AUTO) 143 K/uL (150-450)
[2023-11-07 07:30] VITALS: BP 99/67; TEMP 98.4; O2SAT 98
[2023-11-07 07:35] LABS: BILIRUBIN,TOTAL 2.1 mg/dL (0.2-1.0); CALCIUM, SERUM 9.6 mg/dL (8.5-10.1); CREATININE 1.9 mg/dL (0.6-1.3); MAGNESIUM 2.5 mg/dL (1.8-2.4); PHOSPHORUS 2.9 mg/dL (2.5-4.9); POTASSIUM 4.2 mmol/L (3.5-5.1); TOTAL PROTEIN, SERUM 7.6 g/dL (6.4-8.2)
[2023-11-07] MEDS: AMIODARONE HCL 200 MG TABLET PO SCH (08:23)
[2023-11-07] MEDS: DAPAGLIFLOZIN PROPANEDIOL 5 MG TABLET PO SCH (08:23)
[2023-11-07 09:00] VITALS: BP 165/55
[2023-11-07] MEDS: SACUBITRIL/VALSARTAN 1 EACH TABLET PO SCH (09:07)
[2023-11-07] MEDS ORDERED: DIGOXIN 0.125 MG TABLET PO SCH (09:30)
[2023-11-07] MEDS: FINASTERIDE (5 MG) 5 MG TABLET PO SCH (09:51)
[2023-11-07] MEDS: CEFEPIME 1 GM in IV D5W 50 ML IV SCH (10:13)
[2023-11-07 16:00] VITALS: BP 92/62; TEMP 98.6; O2SAT 98
[2023-11-07 17:16] VITALS: BP 100/75
[2023-11-07] MEDS: FERROUS SULFATE (325 MG) 325 MG/TAB TABLET PO SCH (17:33)
[2023-11-07 20:00] VITALS: BP 91/59; TEMP 97.2; O2SAT 97
[2023-11-07 20:08] VITALS: BP 91/59; TEMP 97.2; O2SAT 97
[2023-11-08 06:47] LABS: BASOPHILS % (AUTO) 0.3 % (0.0-2.0); EOSINOPHILS # (AUTO) 0.2 K/uL (0.0-0.7); EOSINOPHILS % (AUTO) 1.6 % (0.0-6.0); HEMATOCRIT 33 % (39-51); HEMOGLOBIN 11.1 g/dL (13.5-17.5); LYMPHOCYTES # (AUTO) 1.4 K/uL (0.8-4.8); LYMPHOCYTES % (AUTO) 9.2 % (20.0-44.0); MEAN CORPUSCULAR HEMOGLOBIN 32 PG (26.0-33.0); MEAN CORPUSCULAR HGB CONC 34 g/dl (31.0-36.0); MEAN CORPUSCULAR VOLUME 94 fL (80-96); MONOCYTES # (AUTO) 0.8 K/uL (0.1-1.30); MONOCYTES % (AUTO) 5.5 % (2.0-12.0); NEUTROPHILS # (AUTO) 12.5 K/uL (1.8-8.9); NEUTROPHILS % (AUTO) 83.4 % (43.0-81.0); PLATELET COUNT (AUTO) 138 K/uL (150-450); RED BLOOD CELL COUNT(AUTO) 3.49 MIL/uL (4.5-6.0); RED CELL DISTRIBUTION WIDTH 14.5 % (11.5-15.0)
[2023-11-08 06:52] LABS: CALCIUM, SERUM 8.8 mg/dL (8.5-10.1); CREATININE 1.6 mg/dL (0.6-1.3); POTASSIUM 3.6 mmol/L (3.5-5.1)
[2023-11-08 08:00] VITALS: BP 94/69; TEMP 98.4; O2SAT 100
[2023-11-08] MEDS ORDERED: HYDR-3972 PO ×2 (08:18→12:09)
[2023-11-08] MEDS ORDERED: ACID1TAB12 PO ×2 (08:18→12:09)
[2023-11-08] MEDS ORDERED: CEFD300C3 PO ×2 (08:18→12:09)
[2023-11-08 09:29] VITALS: BP 99/65
[2023-11-08] MEDS: APIXABAN 5 MG TABLET PO SCH (09:32)
[2023-11-08 10:07] LABS: PTH, INTACT 37 pg/mL (15-65)
[2023-11-08] MEDS: DIGOXIN 0.125 MG TABLET PO SCH (10:12)
[2023-11-09 09:12] LABS: *SPE A/G RATIO 0.9 (0.7-1.7); *SPE ALBUMIN 3.1 g/dL (2.9-4.4); *SPE ALPHA-1-GLOBULIN 0.4 g/dL (0.0-0.4); *SPE ALPHA-2-GLOBULIN 0.7 g/dL (0.4-1.0); *SPE BETA GLOBULIN 1.1 g/dL (0.7-1.3); *SPE GLOBULIN, TOTAL 3.6 g/dL (2.2-3.9); *SPE M-SPIKE Not Observed g/dL (Not Observed); *SPE PROTEIN TOTAL 6.7 g/dL (6.0-8.5); *SPEGAMMA GLOBULIN 1.3 g/dL (0.4-1.8)
== END 2023-11-08 11:55 | disposition home or self-care (01) | DRG 689 ==
LOC: ER 02:19 → MED 07:55
PROVIDERS: ADMIT Nurse Practitioner Acute Care; ATTEND Nurse Practitioner Acute Care
DX: N30.91 Cystitis, unspecified with hematuria (principal); I50.23 Acute on chronic systolic (congestive) heart failure; E87.1 Hypo-osmolality and hyponatremia; N17.9 Acute kidney failure, unspecified; I13.0 Hypertensive heart and chronic kidney disease with heart failure and stage 1 through stage 4 chronic kidney disease, or unspecified chronic kidney disease; N18.9 Chronic kidney disease, unspecified; E11.22 Type 2 diabetes mellitus with diabetic chronic kidney disease; Z98.890 Other specified postprocedural states; Z87.81 Personal history of (healed) traumatic fracture; Z79.82 Long term (current) use of aspirin; Z79.84 Long term (current) use of oral hypoglycemic drugs; Z79.01 Long term (current) use of anticoagulants; I25.10 Atherosclerotic heart disease of native coronary artery without angina pectoris; K21.9 Gastro-esophageal reflux disease without esophagitis; F32.A Depression, unspecified; Z95.1 Presence of aortocoronary bypass graft; Z95.0 Presence of cardiac pacemaker; Z87.891 Personal history of nicotine dependence; Z87.440 Personal history of urinary (tract) infections; Z79.4 Long term (current) use of insulin; N40.0 Benign prostatic hyperplasia without lower urinary tract symptoms; M89.8X9 Other specified disorders of bone, unspecified site; D64.9 Anemia, unspecified; I25.2 Old myocardial infarction; I27.20 Pulmonary hypertension, unspecified; K40.90 Unilateral inguinal hernia, without obstruction or gangrene, not specified as recurrent; T45.515A Adverse effect of anticoagulants, initial encounter; Y92.9 Unspecified place or not applicable
CPT/HCPCS: 36415; 71045-TC; 76770-TC; 80048-TC; 80053-TC; 80076-TC; 81001; 82248-TC; 82550-TC; 82962-TC; 83605-TC; 83690-TC; 83735-TC; 83970; 84100-TC; 84153-TC; 84154-TC; 84155; 84165; 85025-TC; 87040-TC; 93307-TC; A4217; A4223; G0378; J0692; J0696; J1650; J1815; J2405; J3490; J7030; J7060